=== PATIENT | male | born 1960 | race Caucasian/White ===

== ENCOUNTER 2023-05-03 21:46 | Emergency (ER) | payer OTHER ==
[2023-05-03 21:53] VITALS: BP 141/92; PULSE 107; RESP 16; TEMP 99.4; BMI 26.5
[2023-05-03] MEDS ORDERED: NAPROXEN 500 MG TABLET PO ONE (23:19)
[2023-05-03] MEDS ORDERED: NAPROXEN 500 MG TABLET ONE (23:31)
== END 2023-05-03 23:37 | disposition home or self-care (01) ==
LOC: FER 21:46
DX: M25.561 Pain in right knee (principal)
CPT/HCPCS: 36415; 73562-TC-RT-FY; 84550; 93971-TC; 99285-25